=== PATIENT | male | born 2000 | race Caucasian/White ===

== ENCOUNTER 2024-01-20 19:39 | Emergency (ER) | payer OTHER ==
[~2024-01-20] VITALS: Ht 185.4 cm; Wt 99.0 kg
[2024-01-20 21:27] LABS: Trichomonas vaginalis (AMP) NOT DETECTED (NEGATIVE)
[2024-01-20 21:51] LABS: GC DNA AMPLIFICATION NEGATIVE (NEGATIVE)
[2024-01-20 22:11] VITALS: BP 129/72; TEMP 97.9; O2SAT 97
[2024-01-20] MEDS ORDERED: LOTR1CRE12 TOP (23:23)
[2024-01-20] MEDS ORDERED: AMOX500C PO (23:23)
[2024-01-20] MEDS: AMOXICILLIN 500 MG CAP PO ONE (23:34)
== END 2024-01-20 23:41 | disposition home or self-care (01) ==
LOC: M ED 19:39
DX: J02.9 Acute pharyngitis, unspecified (principal); L85.3 Xerosis cutis; Z79.2 Long term (current) use of antibiotics; Z79.899 Other long term (current) drug therapy

== ENCOUNTER → 2024-03-07 | Outpatient (CLI) | payer OTHER ==
[~2024-03-07] MED LIST: AMOX500C PO; ISOVUE-370 76% 100ML VIAL As Ordered ONE; LOTR1CRE12 TOP
== END ==
LOC: M RAD 16:17
PROVIDERS: ATTEND Physician Assistant
DX: J02.9 Acute pharyngitis, unspecified (principal)
CPT/HCPCS: 70491; Q9967

== ENCOUNTER 2024-05-20 15:11 | Emergency (ER) | payer OTHER ==
[~2024-05-20] VITALS: Ht 185.4 cm; Wt 101.7 kg
[~2024-05-20 15:11] MED LIST changes: -ISOVUE-370 76% 100ML VIAL As Ordered ONE
[2024-05-20 19:36] LABS: BASO # 0.1 10^3/uL (0.0-0.2); BASO % 0.7 % (0.0-1.0); EOS # 0.2 10^3/uL (0.0-0.5); EOS % 3.2 % (0.0-3.0); HEMATOCRIT 45.8 % (42.0-52.0); HEMOGLOBIN 16.1 g/dl (13.5-17.5); LYMPH # 2.5 10^3/uL (1.5-5.0); LYMPH % 33.6 % (24.0-44.0); MEAN CORPUSCULAR HEMOGLOBIN 30.3 pg (27.0-33.0); MEAN CORPUSCULAR HGB CONC 35.2 g/dl (32.0-36.5); MEAN CORPUSCULAR VOLUME 86.3 fl (80.0-96.0); MONO # 0.5 10^3/uL (0.0-0.8); MONO % 7.1 % (2.0-8.0); NEUTROPHILS # 4.1 10^3/uL (1.5-8.5); NEUTROPHILS % 55.3 % (36.0-66.0); PLATELET COUNT, AUTOMATED 189 10^3/uL (150-450); RED BLOOD COUNT 5.31 10^6/uL (4.30-6.10); WHITE BLOOD COUNT 7.5 10^3/uL (4.0-10.0)
[2024-05-20 20:01] LABS: ALBUMIN 4.3 G/DL (3.2-5.2); ALKALINE PHOSPHATASE 83 U/L (46-116); ALT/SGPT 24 U/L (7.0-40); AST/SGOT 13 U/L (<34); BILIRUBIN,DIRECT 0.3 MG/DL (<0.4); BILIRUBIN,TOTAL 0.9 MG/DL (0.3-1.2); BLOOD UREA NITROGEN 12 MG/DL (9-23); CALCIUM LEVEL 9.6 MG/DL (8.5-10.1); CARBON DIOXIDE LEVEL 29 MMOL/L (20-31); CHLORIDE LEVEL 108 MMOL/L (98-107); CREATININE FOR GFR 0.96 MG/DL (0.70-1.30); GLOMERULAR FILTRATION RATE > 60.0 (>60); GLUCOSE, FASTING 87 MG/DL (60-100); POTASSIUM SERUM 3.9 MMOL/L (3.5-5.1); SODIUM LEVEL 142 MMOL/L (136-145)
[2024-05-20 20:11] LABS: MONO REFLEX EBV COMP NEGATIVE (NEGATIVE)
[2024-05-20] MEDS: DOXYCYCLINE HYCLATE 100MG TABLET PO ONE (21:22)
[2024-05-20 21:41] VITALS: BP 126/79; TEMP 98; O2SAT 97
[2024-05-23 12:57] LABS: EBV VIRAL CAPSID AG IGM < 36.00 U/mL (<36.00)
== END 2024-05-20 21:42 | disposition home or self-care (01) ==
LOC: M ED 15:11
DX: R53.81 Other malaise (principal); Z79.2 Long term (current) use of antibiotics; Z79.899 Other long term (current) drug therapy; Z86.19 Personal history of other infectious and parasitic diseases

== ENCOUNTER → 2024-12-27 | Outpatient (REF) | payer OTHER | LOC: M LAB REF 17:37 | PROVIDERS: ATTEND Plastic Surgery Surgery of the Hand | DX: R21 Rash and other nonspecific skin eruption (principal) ==

== ENCOUNTER → 2025-02-18 | Outpatient (CLI) | payer OTHER | LOC: M RAD 12:33 | DX: M25.471 Effusion, right ankle (principal) ==